=== PATIENT | female | born 1955 | race Caucasian/White ===

== ENCOUNTER → 2017-03-14 | Outpatient (CLI) | payer OTHER | END | disposition home or self-care (01) | LOC: CFH 08:26 | PROVIDERS: ATTEND Obstetrics & Gynecology | DX: Z12.31 Encounter for screening mammogram for malignant neoplasm of breast (principal) | CPT/HCPCS: 77067 ==

== ENCOUNTER → 2017-04-17 | Outpatient (CLI) | payer OTHER ==
[~2017-04-17] MED LIST: ALEN70TA5 PO; MULT-224 PO
[2017-04-17 10:00] LABS: BASOPHILS # (AUTO) 0.02 x10^3/uL (0-0.1); BASOPHILS % (AUTO) 1 % (0-1); EOSINOPHILS # (AUTO) 0.09 x10^3/uL (0-0.4); EOSINOPHILS % (AUTO) 2 % (1-7); LYMPHOCYTES # (AUTO) 1.09 x10^3/uL (1-3.4); LYMPHOCYTES % (AUTO) 26 % (22-44); MD NO; MEAN CORPUSCULAR HEMOGLOBIN 32.4 pg (27.0-34.8); MEAN CORPUSCULAR HGB CONC 33.3 g/dL (32.4-35.8); MEAN CORPUSCULAR VOLUME 97.1 fL (80-100); MEAN PLATELET VOLUME 7.2 fL (7.4-10.4); MONOCYTES # (AUTO) 0.33 x10^3/uL (0.2-0.8); MONOCYTES % (AUTO) 8 % (2-9); NEUTROPHILS # (AUTO) 2.63 x10^3/uL (1.8-6.8); NEUTROPHILS % (AUTO) 63 % (42-75); PLATELET COUNT 298 x10^3/uL (130-400); RED BLOOD COUNT 3.92 x10^6/uL (3.82-5.3); RED CELL DISTRIBUTION WIDTH 12.8 % (9.6-15.2)
[2017-04-17 10:02] LABS: MICROSCOPIC NOT IND
[2017-04-17 10:08] LABS: CULTURE INDICATED? NO
== END | disposition home or self-care (01) ==
LOC: STAR 09:06
PROVIDERS: ATTEND Obstetrics & Gynecology
DX: Z01.818 Encounter for other preprocedural examination (principal); D07.1 Carcinoma in situ of vulva
CPT/HCPCS: 36415; 81003; 85025; 93005

== ENCOUNTER 2017-04-27 10:56 | Day surgery (SDC) | payer OTHER ==
[~2017-04-27] VITALS: Ht 170.2 cm; Wt 50.0 kg
[2017-04-27] MEDS ORDERED: ACETAMINOPHEN 500 MG TABLET PO STA (11:11)
[2017-04-27] MEDS ORDERED: GABAPENTIN 300 MG CAPSULE PO STA (11:11)
[2017-04-27] MEDS ORDERED: LACTATED RINGERS 1,000 ML IV SCH (11:11)
[2017-04-27] MEDS ORDERED: EPINEPHRINE 1 MG/ML, 1ML ONE (12:32)
[2017-04-27] MEDS ORDERED: BUPIVACAINE/PF 0.25% ONE (12:32)
[2017-04-27] MEDS ORDERED: ONDANSETRON 2MG/ML, 2ML ONE (12:54)
[2017-04-27] MEDS ORDERED: LIDOCAINE-MPF 2% ,5ML ONE (12:54)
[2017-04-27] MEDS ORDERED: PROPOFOL 10 MG/ML, 20ML ONE (12:54)
[2017-04-27] MEDS ORDERED: DEXAMETHASONE 4 MG/ML, 1ML ONE ×2 (12:54)
[2017-04-27] MEDS ORDERED: NEOSPORIN OINT, 15GM ONE (13:15)
[2017-04-27] MEDS ORDERED: ACETAMINOPHEN 325 MG TABLET PO PRN (13:30)
[2017-04-27] MEDS ORDERED: FENTANYL PF 100 MCG/2ML IV PRN (13:30)
[2017-04-27] MEDS ORDERED: HYDROcodone/APAP 7.5-325MG/15ML UDC PO PRN (13:30)
[2017-04-27] MEDS ORDERED: morphine SULFATE 10 MG/ML, 1ML IV PRN (13:30)
[2017-04-27] MEDS ORDERED: OXYcodone 5 MG/5 ML ORAL.SOL UDC PO PRN (13:30)
[2017-04-27] MEDS ORDERED: ONDANSETRON 2MG/ML, 2ML IVPush PRN (13:30)
[2017-04-27] MEDS ORDERED: MEPERIDINE/PF 25MG/0.5ML IVPush PRN (13:30)
[2017-04-27] MEDS ORDERED: OXYcodone/APAP 5/325MG TABLET ONE (16:25)
[2017-04-27] MEDS ORDERED: OXYcodone/APAP 5/325MG TABLET PO PRN (16:30)
== END 2017-04-27 16:55 ==
LOC: OUT 10:56
PROVIDERS: ATTEND Obstetrics & Gynecology
DX: D07.1 Carcinoma in situ of vulva (principal); F32.9 Major depressive disorder, single episode, unspecified; M81.0 Age-related osteoporosis without current pathological fracture; Z83.3 Family history of diabetes mellitus
CPT/HCPCS: 56620; 88305; J0171; J1100; J2405; J2704; J3490; J7120

== ENCOUNTER → 2020-04-28 | Outpatient (CLI) | payer BC ==
[~2020-04-28] MED LIST changes: -ALEN70TA5 PO; +ALEN70TA77 PO; -MULT-224 PO; +MULT-642 PO
== END | disposition home or self-care (01) ==
LOC: CFH 15:33
PROVIDERS: ATTEND Obstetrics & Gynecology
DX: Z12.31 Encounter for screening mammogram for malignant neoplasm of breast (principal)
CPT/HCPCS: 77067